=== PATIENT | female | born 1970 | race Caucasian/White ===

== ENCOUNTER 2017-06-12 06:34 | Day surgery (SDC) | payer MEDICAID ==
[2017-06-10 16:36] LABS: BASOPHILS % (AUTO) 0.5 % (0-1); EOSINOPHILS # (AUTO) 0.1 X10'3 (0-0.9); EOSINOPHILS % (AUTO) 1.8 % (0-6); LYMPHOCYTES # (AUTO) 2.1 X10'3 (1.1-4.8); LYMPHOCYTES % (AUTO) 33.3 % (21-51); MEAN CORPUSCULAR HEMOGLOBIN 28.3 PG (27.0-31.0); MEAN CORPUSCULAR HGB CONC 33.6 % (33.0-36.5); MEAN CORPUSCULAR VOLUME 84.3 FL (78-98); MONOCYTES # (AUTO) 0.5 X10'3 (0-0.9); MONOCYTES % (AUTO) 7.3 % (2-12); NEUTROPHILS # (AUTO) 3.5 X10'3 (1.8-7.7); NEUTROPHILS % (AUTO) 57.1 % (42-75); PRE OP HEMATOCRIT 40.3 % (35.0-45.0); PRE OP HEMOGLOBIN 13.5 g/dL (12.0-16.0); PRE OP PLATELET COUNT 329 X10'3 (140-440); RED BLOOD COUNT 4.78 X10'6 (4.20-5.60); RED CELL DISTRIBUTION WIDTH 13.8 % (11.5-14.5)
[2017-06-10 16:37] LABS: CLARITY,URINE Clear (Clear); COLOR,URINE Yellow (Yellow); GLUCOSE, URINE Negative (Neg); KETONES,URINE Negative (Neg); LEUKOCYTE ESTERASE ,URINE Negative (Neg); NITRITES, URINE Negative (Neg); OCCULT BLOOD,URINE Negative (Neg); PH,URINE 6.5 (4.8-8.0); PROTEIN,URINE Negative (Neg); UROBILINOGEN,URINE 0.2 E.U/dL (0.2-1.0)
[2017-06-10 16:39] LABS: UA COLLECTION TYPE CLN CATCH MIDSTREAM
[2017-06-10 16:54] LABS: ALBUMIN 3.8 G/DL (3.4-5.0); ALBUMIN/GLOBULIN RATIO 0.9 (1.1-1.5); ALKALINE PHOSPHATASE 88 IU/L (46-116); BLOOD UREA NITROGEN 17 MG/DL (7-18); BUN/CREATININE RATIO 24.3 (6.6-38.0); CALCIUM 9.3 MG/DL (8.5-10.1); CHLORIDE 103 MMOL/L (99-107); PRE OP ALT 66 U/L (30-65); PRE OP ANION GAP 3 (8-16); PRE OP AST 29 U/L (10-37); PRE OP BILIRUB, TOTAL 0.3 MG/DL (0.0-1.0); PRE OP GLUCOSE 103 MG/DL (70-104); PRE OP SODIUM 140 MMOL/L (135-145); TOTAL CARBON DIOXIDE 33.6 MMOL/L (24-32); TOTAL PROTEIN 8.2 G/DL (6.4-8.2); eGFR 90 ML/MIN
[2017-06-10 17:02] LABS: PRE OP POTASSIUM 3.2 MMOL/L (3.4-5.1)
[2017-06-12] VITALS (17 sets, daily range): BP systolic 107–135; BP diastolic 47–87
[~2017-06-12] VITALS: Ht 144.8 cm; Wt 94.6 kg
[~2017-06-12 06:34] MED LIST: HYDR25TA4 PO; IBUP-1985 PO; ceFOXitin inj 1,000 MG in normal saline 100ml IV soln 100 ML IV ONE; famotidine 20mg tablet PO ONE
[2017-06-12] MEDS ORDERED: epiNEPHrine 1 mg/ml inj ONE (06:39)
[2017-06-12] MEDS ORDERED: BUPIVAcaine/PF 2.5 mg/ml (0.25%) 30ml vial ONE (06:39)
[2017-06-12] MEDS ORDERED: vasoPRESSIN 20 units/ml inj. ONE (06:40)
[2017-06-12] MEDS ORDERED: neomy sulf/polymyxin B sulf. GU irrigation 1ml amp IR ONE (06:40)
[2017-06-12] MEDS ORDERED: LIDOcaine 1% (10mg/ml) 2ml vial ONE (07:02)
[2017-06-12] MEDS: ringers solution, lacted 1,000 ML IV SCH (07:23)
[2017-06-12 07:37] LABS: ALBUMIN 3.9 G/DL (3.4-5.0); ANION GAP 8 (8-16); BLOOD UREA NITROGEN 19 MG/DL (7-18); BUN/CREATININE RATIO 31.7 (6.6-38.0); CALCIUM 9.1 MG/DL (8.5-10.1); CHLORIDE 103 MMOL/L (99-107); GLUCOSE 112 MG/DL (70-104); POTASSIUM 3.5 MMOL/L (3.5-5.1); SODIUM 139 MMOL/L (135-145); TOTAL CARBON DIOXIDE 28.5 MMOL/L (24-32); eGFR > 90 ML/MIN
[2017-06-12 07:42] LABS: HCG SERUM QL NEGATIVE
[2017-06-12] MEDS ORDERED: sevoflurane 250ml liquid IH ONE (08:00)
[2017-06-12] MEDS ORDERED: midazolam 2 mg/2 ml injection ONE (08:05)
[2017-06-12] MEDS ORDERED: fentaNYL/PF 50MCG/1 ML 2ML syringe ONE (08:05)
[2017-06-12] MEDS ORDERED: rocuronium 10mg/ml inj IV ONE ×2 (08:21→09:46)
[2017-06-12] MEDS ORDERED: dexamethasone sod phosphate 4mg/ml inj. ONE (08:21)
[2017-06-12] MEDS ORDERED: ondansetron/PF 4mg/2ml inj ONE (08:21)
[2017-06-12] MEDS ORDERED: propofol inj 20 ML IV ONE (08:21)
[2017-06-12] MEDS ORDERED: LIDOcaine 2% (20mg/ml) 5ml vial ONE (08:21)
[2017-06-12] MEDS ORDERED: ringers solution, lacted 1,000 ML IV SCH (09:41)
[2017-06-12] MEDS ORDERED: ondansetron/PF 4mg/2ml inj IV PRN (09:45)
[2017-06-12] MEDS ORDERED: meperidine/PF 25mg/ml syringe IV PRN ×3 (09:45)
[2017-06-12] MEDS ORDERED: proCHLORperazine 10 MG/2 ml inj IV PRN (09:45)
[2017-06-12] MEDS ORDERED: albuterol 60 PUFF/8GM Inhaler IH ONE (09:48)
[2017-06-12] MEDS ORDERED: neostigmine methylsulfate 1 MG/ML 10ml vial ONE (09:48)
[2017-06-12] MEDS ORDERED: glycopyrrolate 0.2mg/ml inj ONE (09:48)
[2017-06-12] MEDS ORDERED: metoclopramide 5 mg/ml inj IV PRN (10:15)
[2017-06-12] MEDS ORDERED: temazepam 15mg capsule PO PRN (10:15)
[2017-06-12] MEDS ORDERED: normal saline 500ml IV soln 500 ML IV PRN (10:15)
[2017-06-12] MEDS ORDERED: HYDROcodone/acetaminophen 10/325mg tab PO PRN (10:15)
[2017-06-12] MEDS ORDERED: diphenhydrAMINE 50 mg/ml inj IV PRN (10:15)
[2017-06-12] MEDS ORDERED: LORazepam 2 mg/ml vial IV PRN (10:15)
[2017-06-12] MEDS: ketorolac trometh. 30mg/ml inj. IV PRN (12:53)
[2017-06-12] MEDS: ondansetron/PF 4mg/2ml inj IV PRN ×2 (12:56→19:12)
[2017-06-12] MEDS: simethicone 80mg chew tab PO SCH ×2 (14:19→18:23)
[2017-06-12] MEDS: HYDROcodone/acetaminophen 10/325mg tab PO PRN (16:18)
[2017-06-12] MEDS: docusate sod 100mg capsule PO SCH (20:48)
[2017-06-13] VITALS: BP 115/72
[2017-06-13] MEDS: ringers solution, lacted 1,000 ML IV SCH (02:33)
[2017-06-13] MEDS: ketorolac trometh. 30mg/ml inj. IV PRN (02:42)
[2017-06-13 06:30] LABS: BASOPHILS % (AUTO) 0.1 % (0-1); EOSINOPHILS % (AUTO) 0.1 % (0-6); HEMATOCRIT 35.4 % (35.0-45.0); HEMOGLOBIN 12.3 g/dl (12.0-16.0); LYMPHOCYTES # (AUTO) 1.9 X10'3 (1.1-4.8); LYMPHOCYTES % (AUTO) 21.8 % (21-51); MEAN CORPUSCULAR HGB CONC 34.8 % (33.0-36.5); MEAN CORPUSCULAR VOLUME 83.5 FL (78-98); MEAN PLATELET VOLUME 7.5 FL (7.4-10.4); MONOCYTES # (AUTO) 0.8 X10'3 (0-0.9); MONOCYTES % (AUTO) 8.6 % (2-12); NEUTROPHILS # (AUTO) 6.1 X10'3 (1.8-7.7); NEUTROPHILS % (AUTO) 69.4 % (42-75); PLATELET COUNT 296 X10'3 (140-440); RED BLOOD COUNT 4.23 X10'6 (4.20-5.60); RED CELL DISTRIBUTION WIDTH 13.4 % (11.5-14.5); WHITE BLOOD COUNT 8.8 X10'3 (4.5-11.0)
[2017-06-13 06:31] LABS: ALBUMIN 3.1 G/DL (3.4-5.0); ANION GAP 8 (8-16); BLOOD UREA NITROGEN 13 MG/DL (7-18); BUN/CREATININE RATIO 18.6 (6.6-38.0); CHLORIDE 106 MMOL/L (99-107); GLUCOSE 118 MG/DL (70-104); POTASSIUM 3.5 MMOL/L (3.5-5.1); SODIUM 143 MMOL/L (135-145); TOTAL CARBON DIOXIDE 28.9 MMOL/L (24-32); eGFR 90 ML/MIN
[2017-06-13 08:00] VITALS: BP 109/67
[2017-06-13] MEDS ORDERED: enoxaparin 40mg/0.4ml syringe SQ SCH (08:00)
[2017-06-13] MEDS: docusate sod 100mg capsule PO SCH (08:46)
[2017-06-13] MEDS: simethicone 80mg chew tab PO SCH (08:46)
[2017-06-13] MEDS: HYDROcodone/acetaminophen 10/325mg tab PO PRN (08:47)
[2017-06-13] MEDS ORDERED: SUMAtriptan 25 MG tablet PO ONE (09:05)
[2017-06-13] MEDS ORDERED: NO HOME MEDS ×2 (11:46→11:48)
[2017-06-14] MEDS ORDERED: HYDROchlorothiazide 25mg tablet PO SCH (08:00)
[2017-06-15] MEDS ORDERED: ibuprofen 200mg tablet PO SCH (08:00)
== END 2017-06-13 11:45 | disposition home or self-care (01) ==
LOC: PAS 06:34 → SUR 3N 10:13 → PAS 06-13 11:45
PROVIDERS: ATTEND Obstetrics & Gynecology Obstetrics
DX: D25.9 Leiomyoma of uterus, unspecified (principal); N72 Inflammatory disease of cervix uteri; N82.8 Other female genital tract fistulae; E66.01 Morbid (severe) obesity due to excess calories; I10 Essential (primary) hypertension; M19.90 Unspecified osteoarthritis, unspecified site; Z86.2 Personal history of diseases of the blood and blood-forming organs and certain disorders involving the immune mechanism; Z98.890 Other specified postprocedural states; Z79.1 Long term (current) use of non-steroidal anti-inflammatories (NSAID); Z79.899 Other long term (current) drug therapy; Z68.42 Body mass index [BMI] 45.0-49.9, adult
CPT/HCPCS: 36415; 58552; 71046; 80048; 80053; 81003; 84703; 85025; 85610; 85730; 86885; 86900; 86901; 87070; 93005; A4315; J0171; J0694; J1100; J1650; J1885; J2001; J2175; J2250; J2405; J2704; J2710; J2765; J3010; J3490; J7030; J7120; A7000